=== PATIENT | male | born 1960 | race Caucasian/White ===

== ENCOUNTER 2019-12-27 11:27 | Outpatient (CLI) | payer OTHER ==
--- NOTE | 2019-12-27 12:12 | RAD ---
Exam: XR Knee Lt 2 View HISTORY: Left knee pain. COMPARISON: None FINDINGS: Minimal tricompartment osteophytosis is present. There is suggestion of minimal narrowing of the medi al joint compartment left knee. No acute fracture, dislocation, or other acute osseous abnormality is identified. IMPRESSION: Osteoarthritis without evidence of an acute osseous abnormality.
== END 2019-12-27 11:28 | disposition home or self-care (01) ==
LOC: BICRAD 11:27
PROVIDERS: ATTEND Internal Medicine Rheumatology
DX: M25.562 Pain in left knee (principal); M17.12 Unilateral primary osteoarthritis, left knee

== ENCOUNTER 2022-09-17 11:51 | Day surgery (SDC) | payer BC ==
[2022-09-16 11:05] VITALS: BMI 28.4
[2022-09-17] MEDS ORDERED: Lidocaine 1% MPF 2 ML VIAL ONE (12:19)
[2022-09-17] MEDS ORDERED: PROPOFOL 200 MG/20 ML VIAL ONE (14:01)
[2022-09-17] MEDS ORDERED: PHENYLEPHRINE-NS 100 MCG/ML 10 ML SYRINGE ONE (14:01)
== END 2022-09-17 15:24 | disposition home or self-care (01) ==
LOC: SDC 11:51
PROVIDERS: ATTEND Internal Medicine Gastroenterology
PROC: 0DBN8ZX Excision of Sigmoid Colon, Via Natural or Artificial Opening Endoscopic, Diagnostic (ICD-10-PCS; principal; 2022-09-17)
PROC: 0DB38ZX Excision of Lower Esophagus, Via Natural or Artificial Opening Endoscopic, Diagnostic (ICD-10-PCS; principal; 2022-09-17)
DX: K63.5 Polyp of colon (principal); K21.00 Gastro-esophageal reflux disease with esophagitis, without bleeding; K57.30 Diverticulosis of large intestine without perforation or abscess without bleeding; K64.8 Other hemorrhoids; I42.9 Cardiomyopathy, unspecified; I10 Essential (primary) hypertension; Z79.82 Long term (current) use of aspirin; Z79.890 Hormone replacement therapy; Z79.899 Other long term (current) drug therapy; Z88.0 Allergy status to penicillin; Z88.1 Allergy status to other antibiotic agents
CPT/HCPCS: 88305; J2704

== ENCOUNTER 2023-03-19 13:43 | Outpatient (CLI) | payer BC | END 2023-03-19 13:44 | disposition home or self-care (01) | LOC: RAD 13:43 | PROVIDERS: ATTEND Internal Medicine Critical Care Medicine | DX: R06.00 Dyspnea, unspecified (principal); J98.11 Atelectasis | CPT/HCPCS: 71046 ==

== ENCOUNTER 2023-09-16 08:44 | Outpatient (CLI) | payer BC | END 2023-09-16 08:45 | disposition home or self-care (01) | LOC: BICULT 08:44 | PROVIDERS: ATTEND Internal Medicine Cardiovascular Disease | DX: I42.8 Other cardiomyopathies (principal); I71.40 Abdominal aortic aneurysm, without rupture, unspecified | CPT/HCPCS: 76775 ==

== ENCOUNTER 2024-02-19 10:34 | Outpatient (CLI) | payer BC | END 2024-02-19 10:35 | disposition home or self-care (01) | LOC: RAD 10:34 | PROVIDERS: ATTEND Internal Medicine Critical Care Medicine | DX: R06.00 Dyspnea, unspecified (principal); J98.4 Other disorders of lung; I51.7 Cardiomegaly; I28.8 Other diseases of pulmonary vessels | CPT/HCPCS: 71046 ==